=== PATIENT | female | born 1985 | race Asian ===

== ENCOUNTER 2016-07-02 16:22 | Outpatient (CLI) | payer OTHER | END 2016-07-02 19:25 | disposition home or self-care (01) | LOC: RAD 16:22 | DX: K59.01 Slow transit constipation (principal) ==

== ENCOUNTER 2016-07-03 16:45 | Observation (INO) | payer OTHER ==
[~2016-07-03] VITALS: Ht 167.6 cm; Wt 143.4 kg
[2016-07-03 17:31] VITALS: BP 143/86; TEMP 99.5; Ht 167.6 cm; Wt 143.4 kg
[2016-07-03 18:08] LABS: PLATELET COUNT 154 K/uL (152-353)
[2016-07-03 18:21] LABS: POTASSIUM 3.6 mmol/L (3.6-5.2); SODIUM 132 mmol/L (136-145)
[2016-07-03 20:00] VITALS: BP 125/83; TEMP 98.1
[2016-07-04] VITALS: BP 103/54; TEMP 97.5
[2016-07-04 04:00] VITALS: BP 127/68; TEMP 98.1
[2016-07-04 05:38] LABS: PLATELET COUNT 129 K/uL (152-353)
[2016-07-04 06:26] LABS: POTASSIUM 3.7 mmol/L (3.6-5.2)
[2016-07-04 07:53] VITALS: BP 115/73; TEMP 98.6
--- NOTE | 2016-07-04 08:07 | NUR ---
07/03/[address] BAÑUELOS THAT CT RESULTS WERE NEGATIVE. TELEPHONE ORDER TO CHANGE CURRENT DOSE OF TORADOL(30MG IV) TO Q 8 HOURS PRN. R&V. NO OTHER NEW ORDERS AT THIS TIME.
[2016-07-04 12:00] VITALS: BP 170/75; TEMP 98
[2016-07-04 16:00] VITALS: BP 145/60; TEMP 98.3
--- NOTE | 2016-07-04 18:05 | NUR ---
1630 DR BAÑUELOS HERE AT THIS TIME AT BS WITH PT. NEW ORDERS GIVEN AND NOTED 164 MESSAGE LEFT WITH KACIE AT HIS OFFICE FOR CONSULT PER DR BAÑUELOS. DR LARA IN SURGERY IN [place]. ATTEMPTED TO CALL DR LARA'S CELL NO ANSWER SO MESSAGE LEFT WITH KAICE
[2016-07-04 20:00] VITALS: BP 152/94; TEMP 97.8
[2016-07-05] VITALS: BP 137/91; TEMP 99.4
[2016-07-05 04:00] VITALS: BP 133/70; TEMP 98.8
--- NOTE | 2016-07-05 07:42 | NUR ---
07/05/16 0540 CHANGED DRAIN SPONGE AROUND RIKKI DRAIN TO L LOWER ABD, NO DRAINAGE OR S/S OF INFECTION NOTED, RIKKI DRAIN HAS HAD NO OUTPUT DURING SHIFT. DRESSING CHANGED TO INCISION SITE ON R LOWER ABD DUE TO SATURATED WITH BLOODY DRAINAGE, 5 SAMSON INTACT, NO S/S OF INFECTION, CLEANED WITH CHLORAPREP COVERED WITH A NON ADHERENT PAD AND AN ABD PAD, SECURED WITH TAPE. PT IS DOES HAVE SORENESS TO ABD. PT'S GOWN ALSO CHANGED. WILL MONITOR, RAILS UP.
[2016-07-05 08:00] VITALS: BP 126/80; TEMP 98
--- NOTE | 2016-07-05 11:20 | NUR ---
DR. BAÑUELOS CALLED TO CHECK ON PATIENT. NEW ORDERS NOTED.
[2016-07-05 12:00] VITALS: BP 113/59; TEMP 97.8
--- NOTE | 2016-07-05 13:45 | NUR ---
REVIEWED ALL DISCHARGE INSTRUCTIONS WITH PATIENT AND FAMILY. PRESCRIPTIONS CALLED IN TO [facility]. IV REMOVED, BANDAID APPLIED.
--- NOTE | 2016-07-05 13:53 | NUR ---
PATIENT DISCHARGED HOME WITH FAMILY. ACCOMPANIED TO EXIT IN WHEELCHAIR. PATIENT IN STABLE CONDITION AT THE TIME OF DISCHARGE.
== END 2016-07-05 14:15 | disposition home or self-care (01) ==
LOC: MED/SURG 16:45
PROVIDERS: ADMIT Family Medicine
DX: K21.9 Gastro-esophageal reflux disease without esophagitis (principal); R10.32 Left lower quadrant pain; R10.31 Right lower quadrant pain; R50.9 Fever, unspecified; E86.0 Dehydration; K59.01 Slow transit constipation
CPT/HCPCS: 36415; 80053; 81025; 83735; 85027; 87040; 96365; 96366; 96367; 96374; 96375; 99220; G0378; G0379; J1885; J2405; Q9963

== ENCOUNTER 2016-07-22 10:34 | Outpatient (CLI) | payer OTHER | END 2016-07-22 19:21 | disposition home or self-care (01) | LOC: US 10:34 | DX: R10.11 Right upper quadrant pain (principal) ==

== ENCOUNTER 2016-08-15 11:58 | Outpatient (CLI) | payer OTHER | END 2016-08-15 20:19 | disposition home or self-care (01) | LOC: NM 11:58 | DX: R10.11 Right upper quadrant pain (principal); R11.0 Nausea | CPT/HCPCS: A9537 ==

== ENCOUNTER 2018-04-15 17:42 | Emergency (ER) | payer OTHER ==
[~2018-04-15] VITALS: Ht 167.6 cm; Wt 141.1 kg
[2018-04-15 18:48] VITALS: BP 141/82; TEMP 98
== END 2018-04-15 18:49 | disposition home or self-care (01) ==
LOC: ED 17:42
DX: J11.1 Influenza due to unidentified influenza virus with other respiratory manifestations (principal)
CPT/HCPCS: 99282

== ENCOUNTER 2018-05-23 17:12 | Emergency (ER) | payer OTHER ==
[~2018-05-23] VITALS: Ht 167.6 cm; Wt 141.1 kg
[2018-05-23 19:33] VITALS: BP 137/89; TEMP 98.4
== END 2018-05-23 19:36 | disposition home or self-care (01) ==
LOC: ED 17:12
PROC: 0H9JXZZ Drainage of Left Upper Leg Skin, External Approach (ICD-10-PCS; principal; 2018-05-23)
DX: L02.416 Cutaneous abscess of left lower limb (principal)
CPT/HCPCS: 87070; 87205; 96375; 99283; J1885

== ENCOUNTER 2018-05-24 10:43 | Emergency (ER) | payer OTHER ==
[~2018-05-24] VITALS: Ht 167.6 cm; Wt 141.1 kg
[2018-05-24 12:03] VITALS: BP 147/66; TEMP 97.2
== END 2018-05-24 12:04 | disposition home or self-care (01) ==
LOC: ED 10:43
DX: L02.416 Cutaneous abscess of left lower limb (principal); Z48.01 Encounter for change or removal of surgical wound dressing
CPT/HCPCS: 99282; J1885

== ENCOUNTER 2020-05-31 09:29 | Outpatient (CLI) | payer OTHER ==
[~2020-05-31] VITALS: Ht 167.6 cm; Wt 104.3 kg
[2020-05-31 14:52] LABS: PLATELET COUNT 223 K/uL (152-353)
[2020-05-31 14:59] LABS: POTASSIUM 3.8 mmol/L (3.6-5.2)
== END 2020-05-31 21:49 | disposition home or self-care (01) ==
LOC: INF 09:29 → RAD 09:29 → INF 21:49
PROVIDERS: ATTEND Family Medicine
DX: U07.1 COVID-19 (principal); Z79.899 Other long term (current) drug therapy
CPT/HCPCS: 36591; 80053; 85027; 96365; Q0239

== ENCOUNTER 2022-11-27 16:02 | Observation (INO) | payer BC ==
[2022-11-27] VITALS (11 sets, daily range): BP systolic 137–177; BP diastolic 85–106; TEMP 97.5–98.5; Ht 167.6 cm; Wt 154.4 kg
[~2022-11-27] VITALS: Ht 167.6 cm; Wt 154.4 kg
[2022-11-27 16:25] LABS: PLATELET COUNT 256 K/uL (152-353)
[2022-11-27 16:36] LABS: POTASSIUM 3.8 mmol/L (3.6-5.2); SODIUM 135 mmol/L (136-145)
[2022-11-27 16:40] LABS: PARTIAL THROMBOPLASTIN TIME 28.6 SECONDS (23.9-36.7)
[2022-11-28] VITALS: BP 133/73; TEMP 97.5
[2022-11-28 03:37] VITALS: BP 126/75; TEMP 97.9
[2022-11-28 05:31] LABS: PLATELET COUNT 249 K/uL (152-353)
[2022-11-28 06:01] LABS: POTASSIUM 4.2 mmol/L (3.6-5.2); SODIUM 136 mmol/L (136-145)
[2022-11-28 08:00] VITALS: BP 143/79; TEMP 97.5
[2022-11-28] MEDS ORDERED: HYDROCHLOROT12.5 M1 PO (09:55)
[2022-11-28 12:00] VITALS: BP 130/66; TEMP 97.4
[2022-11-28] MEDS ORDERED: PANTOPRAZOLE 40MG TA PO (13:19)
[2022-11-28] MEDS ORDERED: INDOMETHACIN SR75 MG PO (13:21)
[2022-11-28 16:00] VITALS: BP 133/79; TEMP 97.5
== END 2022-11-28 17:45 | disposition home or self-care (01) ==
LOC: ED 16:02 → MED/SURG 21:30
PROVIDERS: ADMIT Nurse Practitioner Family; ATTEND Family Medicine
DX: R07.89 Other chest pain (principal); K21.9 Gastro-esophageal reflux disease without esophagitis; I10 Essential (primary) hypertension
CPT/HCPCS: 36415; 80048; 80053; 82550; 83605; 83735; 84100; 84484; 85027; 85379; 85610; 85730; 93005; 96374; 96375; 99221; 99284; G0378; J1100; J1885; J2270

== ENCOUNTER 2023-02-21 09:02 | Outpatient (CLI) | payer BC, OTHER ==
[~2023-02-21 09:02] MED LIST: HYDROCHLOROT12.5 M1 PO; INDOMETHACIN SR75 MG PO; PANTOPRAZOLE 40MG TA PO
== END 2023-02-21 19:22 | disposition home or self-care (01) ==
LOC: US 09:02
PROVIDERS: ATTEND Nurse Practitioner Family
DX: R60.0 Localized edema (principal)